=== PATIENT | female | born 1960 | race Hispanic/Latino ===

== ENCOUNTER 2024-05-02 08:14 | Outpatient (CLI) | payer OTHER ==
[2024-05-02 08:56] LABS: Cardiac Risk 3.4 (Less than 4.5)
== END 2024-05-02 08:15 | disposition home or self-care (01) ==
LOC: BURLAB 08:14
PROVIDERS: ATTEND Physician Assistant
DX: E78.00 Pure hypercholesterolemia, unspecified (principal)
CPT/HCPCS: 36415; 80061